=== PATIENT | male | born 1965 | race Caucasian/White ===

== ENCOUNTER 2017-05-06 05:29 | Day surgery (SDC) | payer OTHER ==
[~2017-05-06] VITALS: Ht 182.9 cm; Wt 95.3 kg
[~2017-05-06 05:29] MED LIST: COZAAR50 MG PO; LIPITOR10 MG PO
[2017-05-06 06:36] LABS: HEMATOCRIT 45.3 % (42.0-54.0); HEMOGLOBIN 15.6 g/dL (13.5-17.5); MCHC 34.4 g/dL (31.0-37.0); MEAN PLATELET VOLUME 9.2 fL (7.4-10.4); RBC 4.87 10x6/uL (4.20-6.10); RDW 12.2 % (11.5-14.5); WBC 8.3 10x3/uL (4.8-10.8)
[2017-05-06 06:43] LABS: CALC OSMOLALITY 281 mosm/kg (275-300); CALCIUM 8.9 mg/dL (8.5-10.1); CARBON DIOXIDE 28.1 mmol/L (21.0-32.0); CHLORIDE - SERUM 104 mmol/L (98-107); GLUCOSE 105 mg/dL (74-106); POTASSIUM - SERUM 4.5 mmol/L (3.5-5.1); SODIUM 141 mmol/L (136-145); UREA NITROGEN 15 mg/dL (7-18); eGFR NON AFRICAN AMERICAN 84 mL/min (90-120)
[2017-05-06 06:49] VITALS: BP 138/77; Ht 182.9 cm; Wt 95.3 kg
--- NOTE | 2017-05-06 11:25 | NUR ---
1100--IV DC'D, PT UP TO DRESS. YOLANDA ALEXANDRA 1110--DISCHARGE INSTRUCTIONS GIVEN, PT VERBALIZES UNDERSTANDING. PT OFF UNIT VIA WC. YOLANDA ALEXANDRA
--- NOTE | 2017-06-22 13:13 | HP ---
PATIENT: REG FRAZIER MEDICAL RECORD: [id number] ACCOUNT: [id number] LOCATION:[facility] : 67 ADMISSION DATE: 05/06/17 HISTORY AND PHYSICAL EXAMINATION HISTORY OF PRESENT ILLNESS: Reg is 51 years old. He has been having a long history of problems with nasal obstruction refractory to medical management. He is a mouth breather. He has trouble with snoring and uvula edema and thickening as well. PAST MEDICAL HISTORY: Includes hypertension. CURRENT MEDICATIONS: Losartan, atorvastatin. ALLERGIES: No known drug allergies. PHYSICAL EXAMINATION: GENERAL: He is healthy-appearing, developmentally normal. FACE: Normal, symmetric, no lesions. EYES: Sclerae and conjunctivae are normal. EARS: Canals and TMs are normal. NOSE: Severe septal deviation and large inferior turbinates. ORAL CAVITY AND OROPHARYNX: He is status post tonsillectomy. There is thick wide uvula. NECK: No masses, no adenopathy. CHEST: Clear. CARDIOVASCULAR: Regular rate and rhythm. No murmur. EXTREMITIES: Normal. IMPRESSION: Nasal obstruction, septal deviation, turbinate hypertrophy, and thickened edematous uvula. PLAN: Septoplasty, bilateral turbinate reductions, and uvulectomy. TRANSINT:[id number] Voice Confirmation ID: [id number] DOCUMENT ID: [id number] JAYDEN SUTHERLAND MD at 1313 CC: [id number] DICTATION DATE: 05/03/17 1022 ANIMAL RESEARCHER: 05/03/17 1117 [facility] 05/06/17 [place] [address]
--- NOTE | 2017-06-22 13:13 | OP ---
PATIENT NAME: REG FRAZIER MEDICAL RECORD: [id number] :67 [facility]: SURGEON: JAYDEN ANTONIO MD DATE OF OPERATION: 05/06/2017 PREOPERATIVE DIAGNOSES: Nasal obstruction, septal deviation, turbinate hypertrophy and recurrent uvula edema. POSTOPERATIVE DIAGNOSES: Nasal obstruction, septal deviation, turbinate hypertrophy and recurrent uvula edema. PROCEDURES: Septoplasty, bilateral inferior turbinate reduction and uvulectomy. SURGEON: Jayden Antonio MD ANESTHESIA: General orotracheal. BLOOD LOSS: Less than 10 cc. SPECIMENS: Uvula. NASAL PACKING: Mayes splints bilaterally. COMPLICATIONS: None. DISPOSITION: Recovery stable. PROCEDURE NOTE: He was brought to the operating room and placed in supine position, sedated and intubated by anesthesia. The nose was examined using a headlight and nasal speculum. He had been decongested with Afrin preoperatively. The septum and inferior turbinates were injected with a total of 1.5 cc of 1% lidocaine with 1:100,000 epinephrine. Afrin pledgets were placed in both sides. He was positioned, prepped and draped in usual fashion for nasal surgery. Using a headlight and nasal speculum while the Afrin pledgets were removed, a right-sided Merrill incision was made and ipsilateral mucoperichondrial flap was elevated. He had undergone a previous septoplasty, so it was just really an anterior septal deviation. Some cartilage was removed from above the maxillary spine to shorten the anterior septal cartilage a little bit to allow it to move back into the midline and relaxing incisions were made. The bony spur was removed off the maxillary spine on the right side. This allowed the septum to move back to the midline. Both inferior turbinates were medialized with a freer. A Gruenwald was used to take down the inferior redundant portion of the turbinates. Suction cautery on a setting of 25 was used to stop any bleeding and both the inferior turbinates were outfractured with a Boies elevator. The nose was examined, had a good straight nasal airway on both sides. The Herbie incision was closed with interrupted 4-0 chromic. Mayes splints with mupirocin ointment were placed bilaterally and sutured through the anterior membranous septum with a 2-0 Prolene on a Pal needle. The table was then turned 90 degrees. Head drapes applied and he was positioned for uvulectomy. Using a headlight, a Regulo-Stefano mouth gag was carefully inserted and elevated on a towel on his chest. The palate was examined and palpated, it was normal. He was retracted, the nasopharynx was examined with a mirror. Again, the nasopharynx and choana were normal. The uvula was grasped with an Allis clamp and pulled up on to the palate. Spatula tip cautery on a setting of 10 was used to divide a line across the mucosa of the nasopharyngeal OPERATIVE REPORT [id number] REG FRAZIER surface of the uvula, preserving all the palate mucosa and then anteriorly the same thing was done and then the muscular portion of the uvula was divided. This was then closed with interrupted 3-0 Vicryl. The pharynx was irrigated and suctioned. The field was clean and dry. He was awakened, extubated, and transported to recovery in good condition. No complications. TRANSINT:[id number] Voice Confirmation ID: [id number] DOCUMENT ID: [id number] JAYDEN ANTONIO MD at 1313 CC: [id number] DICTATION DATE: 05/10/17 1430 AUTOCAD TECHNICIAN: 05/10/17 1620 [facility] 05/06/17 [id number] [place] [address]
== END 2017-05-06 11:10 | disposition home or self-care (01) ==
LOC: D.OPS 05:29 → D.PAN 07:30 → D.OPS 07:30 → D.PAN 07:45 → D.OPS 08:05
PROVIDERS: Anesthesiology
DX: J34.89 Other specified disorders of nose and nasal sinuses (principal); J34.3 Hypertrophy of nasal turbinates; J34.2 Deviated nasal septum; K13.79 Other lesions of oral mucosa; F17.200 Nicotine dependence, unspecified, uncomplicated; I10 Essential (primary) hypertension; Z79.899 Other long term (current) drug therapy; Z01.812 Encounter for preprocedural laboratory examination